=== PATIENT | female | born 1990 | race Caucasian/White ===

== ENCOUNTER 2024-02-26 12:49 | Day surgery (SDC) | payer SELFPAY ==
[2024-02-26] VITALS (20 sets, daily range): BP systolic 121–150; BP diastolic 77–104; PULSE 98–134; BMI 26.0
[2024-02-26] MEDS: PROTONIX IV 80 MG IV (08:48)
[2024-02-26 08:54] LABS: % Basophils 1.2 % (0-2); % Eosinophils 0.3 % (0-6); % Immature Granulocytes 0.3 % (0-0.5); % Lymphocytes 17.8 % (20.5-51.1); % Monocytes 5.8 % (1.7-9.3); % Neutrophils 74.6 % (42.2-75.2); Absolute Basophils 0.1 10^3/uL (0-0.2); Absolute Lymphocytes 1.4 10^3/uL (1.2-3.4); Absolute Monocytes 0.5 10^3/uL (0.1-0.6); Absolute Neutrophils 5.8 10^3/uL (1.4-6.5); Hematocrit 35.5 % (37.0-47.0); Hemoglobin 12.8 g/dL (12.0-16.0); Mean Corp Hgb Conc. 36.1 g/dL (33.0-37.0); Mean Corpuscular Hgb 36.6 pg (27.0-31.0); Mean Corpuscular Volume 101.4 fL (81.0-99.0); Mean Platelet Volume 10.9 fL (7.4-10.4); Nucleated Red Blood Cells % 0 %; Platelet Count 170 10^3/uL (130-400); Red Cell Dist. Width 14.3 % (11.5-14.5); White Blood Cell Count 7.8 10^3/uL (4.8-10.8)
[2024-02-26 09:02] LABS: HCG, Serum Qualitative Screen Negative
[2024-02-26 09:04] LABS: ALT (SGPT) 49 U/L (0-35); AST (SGOT) 102 U/L (14-36); Albumin 4.5 g/dl (3.5-5.0); Alkaline Phosphatase 85 U/L (38-126); Blood Urea Nitrogen 23 mg/dl (7-17); Calcium 10.3 mg/dl (8.4-10.2); Carbon Dioxide 23 mmol/L (22-30); Chloride 102 mmol/L (98-107); Glucose 139 mg/dl (70-99); Potassium 3.5 mmol/L (3.5-5.1); Sodium 137 mmol/L (135-145); Total Bilirubin 1.9 mg/dl (0.2-1.3); Total Protein 7.6 g/dl (6.3-8.2); eGFR > 60.00
[2024-02-26 09:09] LABS: PT 13.2 Sec (11.4-14.6)
--- NOTE | 2024-02-26 10:32 | ED.GENMED ---
History of Present Illness
General
Chief Complaint: Rectal Bleeding
Source: patient and family
Time Seen by Provider: 02/26/24 08:30
History of Present Illness
History of Present Illness:
33-year-old female who presents after she vomited blood at home. The patient also states she had black stool. Patient does admit that she had a vomiting illness on Saturday thought was a GI bug but does admit that she was drinking alcohol on Saturday.
She states she does drink alcohol about 3 times a week. She drinks about 3 glasses of wine 3 times a week. Patient also does use ibuprofen once or twice daily. This is for headaches. The patient denies anticoagulant use. No abdominal pain. No
fevers. No shortness of breath. No chest pain.
Past History
Past History
ED Past Medical History: None
ED Past Surgical History: None
PSI?: No
Social History
Tobacco: Smoker (Social)
Alcohol: Occasional
Living: with family
Phy Exam
Physical Exam
Physical Exam:
CONSTITUTIONAL Patient alert and oriented to person, place and time. Well-appearing. Vital signs reviewed.
HEAD atraumatic, normocephalic.
EYES eyelids normal to inspection, Pupils equally round and reactive to light, Extraocular muscles intact, Conjunctiva normal, Sclera normal.
NECK normal range of motion, Trachea midline, no jugular venous distention.
RESPIRATORY CHEST No respiratory distress noted, Chest expansion equal, Bilateral breath sounds clear.
CARDIOVASCULAR regular and tachycardic
ABDOMEN abdomen nontender, Bowel sounds normal. No distention. Rectal exam strongly heme positive but minimal stool in the vault
BACK normal inspection, no obvious deformities
UPPER EXTREMITY range of motion normal, Motor strength normal, no cyanosis, no edema.
LOWER EXTREMITY range of motion normal, Motor strength normal, no cyanosis, no edema.
NEURO Speech normal, No focal motor deficits, Sorin coma scale 15, Memory normal, Cranial Nerves intact to screening exam.
SKIN skin warm, dry, and normal in color.
PSYCHIATRIC patient oriented to person place and time, Normal affect.
Course
Orders/Labs/Results
Orders:
Orders
02/26/24 08:30
IV Insert/Care/Rem.- Treatment PRN
02/26/24 08:37
Complete Blood Count/With Diff Urgent
Comprehensive Metabolic Panel Urgent
HCG, Serum Qualitative Screen Urgent
Prothrombin Time Urgent
02/26/24 08:43
Pantoprazole [Protonix IV] 80 mg IV NOW STA
Test Result ONCE
02/26/24 10:59
Lorazepam [Ativan] 0.5 mg IV NOW STA
Abnormal Lab Results
02/26/24
08:37
RBC 3.50 L 10^6/uL
(4.20-5.40)
Hct 35.5 L %
(37.0-47.0)
MCV 101.4 H fL
(81.0-99.0)
MCH 36.6 H pg
(27.0-31.0)
MPV 10.9 H fL
(7.4-10.4)
Lymphocytes % 17.8 L %
(20.5-51.1)
BUN 23 H mg/dl
(7-17)
Glucose 139 H mg/dl
(70-99)
Calcium 10.3 H mg/dl
(8.4-10.2)
Total Bilirubin 1.9 H mg/dl
(0.2-1.3)
AST 102 H U/L
(14-36)
ALT 49 H U/L
(0-35)
02/26/24 08:37
02/26/24 08:37
Vital Signs
Initial and Last Documented VS:
Initial Vital Signs
Temp Pulse Resp BP Pulse Ox
98.4 F 130 18 140/103 99
02/26/24 08:24 08/14/24 08:24 02/26/24 08:24 02/26/24 08:24 02/26/24 08:24
Last Documented Vital Signs
Temp Pulse Resp BP Pulse Ox
98.4 F 92 17 129/93 99
02/26/24 08:24 02/26/24 12:15 02/26/24 12:15 02/26/24 12:00 02/26/24 08:24
MDM/Problems Addressed
MDM/Problems Addressed:
Upper GI bleeding. NSAID use, alcohol use
*Pulse Oximetry
Patient hypoxic: no
*Development Consultant Interpretation
Rate: tachycardiac
Interpretation: abnormal
Rhythm: sinus
*Critical Care Note
Total Time (30-74mins, 75-104mins- exclusive of procedures): 30 minutes
Data Reviewed
Source: patient and family
Prescriptions/Medications Considered But Not Given:
Consider Protonix drip. Discussed with GI who will take to endoscopy
Patient Management
Discussion with other providers: Lining Machine Tender (Gastroenterology)
Escalation/DeEscalation of care consider admission/obs:
Case discussed with GI. For now they will consider endoscopy to see if patient needs admission versus ability to discharge home. Concern for peptic ulcer disease in light of NSAID use and alcohol use. Also did recently have vomiting illness and
could consider just an erosion or gastritis. GI to evaluate
ED Attending Note
-
Portions of this chart may have been created with voice recognition software.� Occasional wrong word or��sound alike� substitutions may have occurred due to the inherent limitations of voice recognition software.
Discharge Plan
Departure
Patient Disposition: Admit
Date of Disposition: 02/26/24
Time of Disposition: 10:44
Admit to: GI lab
Presentation/result/management discussed w/ accepting MD/DO: Gastroenterology
Discharge Problem:
Acute upper gastrointestinal bleeding
Interventions
Interventions:
*Risk Screen - Suicide Last Done: 02/26/24 08:25
*General Assessment Last Done: 02/26/24 08:25
*Neglect/Abuse Screening Last Done: 02/26/24 08:25
ED- Fall Risk Assessment Last Done: 02/26/24 08:54
*ED COVID-19 Vaccine History Last Done: 02/26/24 08:25
*Nursing Disposition Last Done: 02/26/24 12:39
TT-Oxbimb-Fiaybpzsjy Assessment Last Done: 02/26/24 08:54
ED- Cardiac Assessment Last Done: 02/26/24 08:54
ED- Pulmonary Assessment Last Done: 02/26/24 08:54
Discharge Date and Time
Discharge Date/Time: 02/26/24 12:41
[2024-02-26] MEDS: ATIVAN 0.5 MG IV (11:09)
--- NOTE | 2024-02-26 11:19 | CON.GI ---
Addendum entered and electronically signed by Juanis Rascon MD 02/26/24 14:35:
I saw and examined the patient.
The WRITING CENTER DIRECTOR's note was reviewed and I agree with the note.
Comment: This is a 33-year-old female who has past medical history of alcohol abuse, daily NSAID use, anxiety, depression, migraines, prior history of peptic ulcer disease with ulceration noted in the gastric antrum on CT in 2020 with possible
perforation she then had an upper GI which showed no perforation she was told to follow-up with GI for endoscopy but unfortunately had not followed up presents now with symptoms of hematemesis with melena and dizziness today morning. She was
tachycardic in the ER hemoglobin of 12.8 she also was noted to have elevated MCV with AST greater than ALT. She did receive IV hydration blood pressure stable she states that she is also been having a cough and was sick with gastroenteritis a few
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
Assessment and plan upper GI bleed most likely secondary to NSAIDs and possible peptic ulcer disease related to that will also need to rule out alcohol gastritis and possible Danielle-Tyler tear given recent history of gastroenteritis with n/v. She
has received a bolus of Protonix and IVF in the ER will schedule her for an endoscopy today. Will need to avoid NSAIDs and also told her to cut back on alcohol use, she did have mildly elevated LFTs most likely secondary to alcohol hepatitis will
continue to trend INR and platelets are normal.
Original Note:
Consultation
-
Date/Time Consultation Requested: 02/26/24 1045
Date/Time Consultation Performed: 02/26/24 1115
Requesting Provider: Wilson Sahu DO
Performing Provider: JAHAIRA Partida, Juanis Rascon MD
Reason for Consultation: hematemesis, black stools
Medical History
Chief Complaint / HPI
Chief Complaint: vomiting blood, black stools
History of Present Illness:
Pt is a 33yo with hx migraines with daily NSAID use(ibuprofen 600mg daily), anxiety, depression, social ETOH with 2-3 glasses of wine 3-4 times per week, occasional tobacco use and marijuana use with onset of vomiting blood this am. Pt states recent
GI illness with vomiting earlier in week then noted vomiting larger amount of red blood with clots with dizziness and black stools this am prompting ER evaluation. In ER noted with hbg 12.8, MCV 101, BUN 23, bili 1.9, AST 102, ALT 49 alk phos
85. She is also noted with some tachycardia with stable BP on admission. No hx GI bleed and denies hx prior EGD or colonoscopy in past. In review of chart from 2020 noted with concern for free air, ? ulceration gastric antrum, umbilical hernia,
UGI f/u no ulceration and duodenitis noted. She was recommended follow up but did not proceed.
Pt admits to vomiting, black stools and dizziness as above but denies dysphagia, GERD, abdominal pain, diarrhea, constipation or red blood in stools.
Past Medical History
Past Medical History: Psychiatric (anxiety/depression) and Other (migraines with NSAID use, ETOH use, tobacco use, marijuana use, 2020 - CT with suggestion of free air , ? ulceration gastric antrum, umbilical hernia, UGI f/u no ulceration and
duodenitis noted )
Past Surgical History: Gynecological (D+C)
Social History
Tobacco: Smoker (occasional )
Alcohol: Occasional (2-3 drinks 3-4 times per week)
Drug: Marijuana
Living: With Family
Employment: Employed
Family History
Family History: Other (sister with hx ETOH pancreatitis )
Allergies / Home Medications
Allergy/AdvReac Type Severity Reaction Status Date / Time
No Known Allergies Allergy Verified 02/26/24 08:24
�Medication �Instructions �Recorded
ibuprofen 200 mg tablet (Advil) 200 mg PO Q6HPRN PRN mild pain 02/26/24
Review of Systems
-
History Source: Patient
Constitutional: Reports No Symptoms
EENT: Reports No Symptoms
Respiratory: Reports No Symptoms
Cardiac: Reports Palpitations (tachicardia in ER)
Abdomen/GI: Reports Nausea, Vomiting, Black Stools and Other (hematemesis )
: Reports No Symptoms
Musculoskeletal: Reports No Symptoms
Neurological: Reports Dizzy, Headache and Weakness
Endocrine: Reports No Symptoms
Hematologic/Lymphatic: Reports Bleeding
Vital Signs
Temp Pulse Resp BP Pulse Ox
98.4 F 120 26 148/104 99
02/26/24 08:24 02/26/24 10:38 02/26/24 10:38 02/26/24 10:38 02/26/24 08:24
Physical Exam
Exam
General: Well Developed and Well Nourished
HEENT: Other (minimal jaundice )
Respiratory: Clear
Cardiac: Other (tachy)
GI: Soft, Non Tender and Non Distended
Rectal: Hem Positive (in ER)
Musculoskeletal: No Clubbing and No Cyanosis
Skin: Warm and Dry
Neuro: Awake, Alert and AO x 3
Psych: Calm
Results
WBC 7.8 10^3/uL (4.8-10.8) 02/26/24 08:37
Hgb 12.8 g/dL (12.0-16.0) 02/26/24 08:37
Hct 35.5 % (37.0-47.0) L 02/26/24 08:37
MCV 101.4 fL (81.0-99.0) H 02/26/24 08:37
Plt Count 170 10^3/uL (130-400) 02/26/24 08:37
Absolute Neuts (auto) 5.8 10^3/uL (1.4-6.5) 02/26/24 08:37
PT 13.2 Sec (11.4-14.6) 02/26/24 08:37
INR 1.00 02/26/24 08:37
Sodium 137 mmol/L (135-145) 02/26/24 08:37
Potassium 3.5 mmol/L (3.5-5.1) 02/26/24 08:37
Chloride 102 mmol/L (98-107) 02/26/24 08:37
Carbon Dioxide 23 mmol/L (22-30) 02/26/24 08:37
BUN 23 mg/dl (7-17) H 02/26/24 08:37
Creatinine 0.7 mg/dL (0.6-1.0) 02/26/24 08:37
Calcium 10.3 mg/dl (8.4-10.2) H 02/26/24 08:37
Total Bilirubin 1.9 mg/dl (0.2-1.3) H 02/26/24 08:37
AST 102 U/L (14-36) H 02/26/24 08:37
ALT 49 U/L (0-35) H 02/26/24 08:37
Alkaline Phosphatase 85 U/L (38-126) 02/26/24 08:37
Diagnostic Image Results:
2020 US abdomen
1. No evidence of cholelithiasis, acute cholecystitis, or biliary ductal dilation.
2. Dirty shadowing anterior to the liver, consistent with free intraperitoneal air, also seen on yesterday's CT.
3. Positive sonographic Bower's sign, more likely related to upper GI process than acute cholecystitis.
2020 CT A/p with IV contrast
1). There is free intraperitoneal air suggesting the presence of perforated abdominal viscus.
2). Imaging suggests ulceration at the anterior superior aspect of the gastric antrum.
3). There is a small amount of ascites in the pelvis.
4). There is 2 cm umbilical hernia which contains a knuckle of small bowel without associated obstruction or strangulation
2020 UGI
No ulceration or perforation is demonstrated.
There is thickening of the folds in the second and third portions of the duodenum suggesting duodenitis.
Prior GI Procedures:
EGD: none
Colonoscopy: none
Assessment / Plan
-
Pt is a 33yo with hx migraines with daily NSAID use(ibuprofen 600mg daily), anxiety, depression, social ETOH with 2-3 glasses of wine 3-4 times per week, occasional tobacco use and marijuana use with onset of vomiting blood this am. Pt states recent
GI illness with vomiting earlier in week then noted vomiting larger amount of red blood with clots with dizziness and black stools this am prompting ER evaluation. In ER noted with hbg 12.8, MCV 101, BUN 23, bili 1.9, AST 102, ALT 49 alk phos
85. She is also noted with some tachycardia with stable BP on admission. No hx GI bleed and denies hx prior EGD or colonoscopy in past. In review of chart from 2020 noted with concern for free air, ? ulceration gastric antrum, umbilical hernia,
UGI f/u no ulceration and duodenitis noted. She was recommended follow up but did not proceed.
-hematemesis
-melena
-tachycardia
-ETOH use
-macrocytosis
-increased LFT's- possible ETOH related vs other
-hx ? perforated ulcer 2020 without follow up
-migraines with daily NSAID use
other med problems:
-anxiety/depression
-tobacco use
-marijuana use
PLAN:
etiology of hematemesis/melena related to PUD with hx NSAID use, gastritis/esophagitis, portal gastopathy with ETOH use, MW tear with recent GI illness vs other
plan for EGD today- pt agreeable to proceed
hbg stable 12.8 on admission
pending results will determine need for admission
discussed ETOH abstinence
NSAID avoidance-- review with PCP for alternative for headaches
NPO
PPI given in ER
monitor for ETOH withdrawal
INR, platelets and albumin normal with possible underlying liver disease with LFT elevation
updated hospitalist on possible need for admission pending EGD results
-
-
-
Thank you for consultation and allowing me to participate in the patient's care. Please call the regional education coordinator GI physician during the after hours with any questions or concerns.
--- NOTE | 2024-02-26 14:17 | HPS.HSE ---
Family Physician
-
Family Physician: * NONE
Chief Complaint
-
Nausea and vomiting with blood
History of Present Illness
Patient is a 33-year-old female who presents to [facility] after multiple episodes of vomiting with bright red blood. Patient states she has never had blood in her vomit before and thought this was a GI illness. She states she drinks at
least 5 days of the week and has at least 4-5 drinks. She smokes marijuana a couple times a week as well and states she smoked before onset of symptoms. Patient also takes 1-2 ibuprofen for pain daily. After presenting to the ED, she was taken
for an EGD with GI. She states she has no headaches, ongoing nausea or vomiting, diarrhea, constipation, abdominal pain, chest pain, shortness of breath.
Medical History
Past Medical History
Past Medical History: Reports None
Past Surgical History: Reports None
Social History
Tobacco: Other (Social cigarette smoker)
Alcohol: Daily (5 days a week, 4-5 drinks a day)
Drug: Marijuana (2 times a week)
Living: With Family
Family History
Family History: Not pertinent
Allergies / Home Medications
Allergies reflects when Allergies were last updated in [employer].
Home Medications with original date entered in [employer]
Allergy/Medication List:
no known allergies
Review of Systems
-
History Source: Patient
Constitutional: Reports No Symptoms
EENT: Reports No Symptoms
Respiratory: Reports Cough (Since Saturday)
Cardiac: Reports No Symptoms
Abdomen/GI: Reports No Symptoms
Neurological: Reports No Symptoms
Psych: Reports No Symptoms
Physical Exam
Vital Signs
Vital Signs
Temp Pulse Resp BP Pulse Ox
97.8 F 99 15 123/79 98
02/26/24 13:50 02/26/24 14:00 02/26/24 14:00 02/26/24 14:00 02/26/24 14:10
Physical Exam
General: Well Developed, Well Nourished, No Apparent Distress, Comfortable and Conversant
HEENT: NormoCephalic and Anicteric
Respiratory: Clear
Cardiac: S1/S2 and Regular Rhythm
GI: Soft, Non Tender, Non Distended and Normal Bowel Sounds
Musculoskeletal: No Clubbing, No Cyanosis and No Edema
Skin: Warm and Dry
Neuro: AO x 3 and No Motor Deficits
Psych: Calm
Laboratory Results
-
02/26/24 08:37
02/26/24 08:37
Laboratory Results
PT 13.2 Sec (11.4-14.6) 02/26/24 08:37
INR 1.00 02/26/24 08:37
Total Bilirubin 1.9 mg/dl (0.2-1.3) H 02/26/24 08:37
AST 102 U/L (14-36) H 02/26/24 08:37
ALT 49 U/L (0-35) H 02/26/24 08:37
Alkaline Phosphatase 85 U/L (38-126) 02/26/24 08:37
Data Reviewed
-
Medical Tests (Nuc Med, Echo, EKG etc): Report Reviewed by me
Lab Data: Labs Reviewed by me and Discussed with Physician
Old Records: Reviewed
Impression/Plan
-
IMPRESSION: Patient is a 33-year-old female with no significant past medical history presenting to [facility] after multiple episodes of hematemesis.
PLAN:
Hematemesis
-Peptic ulcer secondary to alcohol use versus NSAID use versus marijuana hyperemesis syndrome
�Monitor overnight for repeat episodes
� GI on board. Input appreciated
Alcohol use
� Start patient on thiamine and folate
� MSAS protocol
�Monitor patient for any withdrawal symptoms
DVT prophylaxis�sequential compression devices
Full code
[2024-02-26] MEDS: THIAMINE INJECTION 200 MG IV (17:00)
[2024-02-26] MEDS: FOLVITE 50.2 MG IV (17:01)
[2024-02-26] MEDS: ATIVAN 0.5 MG PO (17:40)
[2024-02-26] MEDS: NSS (PRESERVATIVE FREE) 10 ML IV (21:18)
[2024-02-26] MEDS: PROTONIX IV 40 MG IV (21:20)
[2024-02-27 03:19] VITALS: BP 137/95
--- NOTE | 2024-02-27 07:27 | W.PN.HOSP.TC ---
Today's Communication/Plan
-
.
Assessment / Plan
Assessment / Plan
IMPRESSION: Patient is a 33-year-old female with no significant past medical history presenting to [facility] after multiple episodes of hematemesis.
PLAN:
Hematemesis
-Peptic ulcer secondary to alcohol use versus NSAID use versus marijuana hyperemesis syndrome
�Monitor overnight for repeat episodes
� GI on board. Input appreciated
Alcohol use
� Start patient on thiamine and folate
� MSAS protocol
�Monitor patient for any withdrawal symptoms
Axiety
- pt given a single dose of ativan on 02/25
- warm hand off offered, patient refused.
� Patient to be discharged on paroxetine
- monitor and treat for any further sx
DVT prophylaxis�sequential compression devices
Full code
Anticipated Discharge: Today
Subjective/Interval History
-
Date of Service: February 27, 2024
Patient reports feeling well today. She states she had some anxiety overnight. She is looking forward to going home. No new symptoms or repeat episodes of hematemesis
Objective Data
-
Labs:
Laboratory Results
02/27/24
06:00
WBC Pending
Hgb Pending
Hct Pending
Plt Count Pending
Vital Signs:
Vital Signs
Temp Pulse Resp BP Pulse Ox
99.8 F 86 18 137/95 95
02/27/24 03:19 02/27/24 03:19 02/27/24 03:19 02/27/24 03:19 02/27/24 03:19
I&O
02/26/24 02/27/24 02/28/24
06:59 06:59 06:59
Intake Total 100 / 100
Balance 100 / 100
Review of Systems
-
History Source: Patient
All other systems: Reviewed and negative
Physical Exam
-
General: Well Developed, Well Nourished, No Apparent Distress, Comfortable and Conversant
HEENT: Normocephalic and Atraumatic
GI: Soft, Nontender and Nondistended
Musculoskeletal: No Clubbing, No Cyanosis and No Edema
Skin: Warm and Dry
Neuro: AO x 3
Psych: Calm
Data Reviewed
-
Labs: Labs Reviewed by me and Discussed with Physician
Old Records: Reviewed
[2024-02-27 07:45] VITALS: BP 137/88
[2024-02-27] MEDS: PROTONIX IV 40 MG IV (07:58)
[2024-02-27] MEDS: ATARAX 25 MG PO (07:58)
[2024-02-27] MEDS: THIAMINE INJECTION 200 MG IV (07:59)
[2024-02-27] MEDS: NSS (PRESERVATIVE FREE) 10 ML IV (07:59)
--- NOTE | 2024-02-27 08:33 | W.PN.GI.CBS2 ---
Today's Communication / Plan
-
advanced diet
DC home if HB stable
Assessment / Plan
-
Pt is a 33yo with hx migraines with daily NSAID use(ibuprofen 600mg daily), anxiety, depression, social ETOH with 2-3 glasses of wine 3-4 times per week, occasional tobacco use and marijuana use with onset of vomiting blood this am. Pt states recent
GI illness with vomiting earlier in week then noted vomiting larger amount of red blood with clots with dizziness and black stools this am prompting ER evaluation. In ER noted with hbg 12.8, MCV 101, BUN 23, bili 1.9, AST 102, ALT 49 alk phos
85. She is also noted with some tachycardia with stable BP on admission. No hx GI bleed and denies hx prior EGD or colonoscopy in past. In review of chart from 2020 noted with concern for free air, ? ulceration gastric antrum, umbilical hernia,
UGI f/u no ulceration and duodenitis noted. She was recommended follow up but did not proceed.
-hematemesis
-melena
-tachycardia
-ETOH use
-macrocytosis
-increased LFT's- possible ETOH related vs other
-hx ? perforated ulcer 2020 without follow up
-migraines with daily NSAID use
other med problems:
-anxiety/depression
-tobacco use
-marijuana use
PLAN:
Upper GI bleed status post EGD which showed gastric antral ulcers and a oozing prepyloric ulcer which showed pigmented spot status post gold probe. Also had duodenal mucosal flattening suggestive of celiac, celiac serologies are pending
No further bleeding, labs pending
If hemoglobin stable okay to DC later today
Advance diet
Repeat upper endoscopy in 8 weeks to check healing.
Will take small bowel biopsies at that time to rule out celiac and also gastric biopsies to rule out H. pylori although ulcers most likely NSAID related
NO NSAIDS
PPI bid
Also has alcohol hepatitis encouraged her to strongly abstain from alcohol and see her PCP to treat her underlying anxiety depression she has been off meds for a long time continue thiamine and folic acid
Encouraged her to also attend AA meetings DF less than 32
-
Subjective
Subjective
Date of Service: February 27, 2024
No further nausea vomiting or hematemesis. No melena. She denies any abdominal pain. She says she does have baseline anxiety depression and just feels anxious but denies withdrawal. Blood pressure stable and heart rate is also stable now not
tachycardic anymore
Objective
Data Reviewed
Laboratory Data:
Laboratory Results
02/26/24 08:37
Laboratory Results
PT 13.2 Sec (11.4-14.6) 02/26/24 08:37
INR 1.00 02/26/24 08:37
Total Bilirubin 1.9 mg/dl (0.2-1.3) H 02/26/24 08:37
AST 102 U/L (14-36) H 02/26/24 08:37
ALT 49 U/L (0-35) H 02/26/24 08:37
Alkaline Phosphatase 85 U/L (38-126) 02/26/24 08:37
Vital Signs and I&O:
Vital Signs
Temp Pulse Resp BP Pulse Ox
97.7 F 88 21 137/88 98
02/27/24 07:45 02/27/24 07:45 02/27/24 07:45 02/27/24 07:45 02/27/24 07:45
I&O
02/26/24 02/27/24 02/28/24
06:59 06:59 06:59
Intake Total 100 / 100
Balance 100 / 100
Impression: - Normal esophagus.
- Non-bleeding gastric ulcers with no stigmata of
bleeding.
- Oozing gastric ulcer with a flat pigmented spot
(Hector Class IIc). Treated with bipolar cautery.
- Flattened mucosa was found in the duodenum,
suspicious for celiac disease.
- No specimens collected.
Physical Exam
Physical Exam
Cardiology: Normal Sinus Rhythm
Pulmonary: Clear
GI: Soft, Non Distended, Non Tender and Normal Bowel Sounds
--- NOTE | 2024-02-27 08:37 | W.PN.GI.CBS2 ---
Today's Communication / Plan
-
s/p EGD with PUD
repeat hbg pending this am, pt reports brown stools no abdominal pain
pt feeling improved
increased to low residue diet
message sent to office to arrange GI follow up and will need EGD in 8 week
cont PPI BID
counseled on NSAID and ETOH abstinence
monitor for ETOH withdrawal
if hbg stable and tolerating advanced diet consider discharge today
Assessment / Plan
-
Pt is a 33yo with hx migraines with daily NSAID use(ibuprofen 600mg daily), anxiety, depression, social ETOH with 2-3 glasses of wine 3-4 times per week, occasional tobacco use and marijuana use with onset of vomiting blood this am. Pt states recent
GI illness with vomiting earlier in week then noted vomiting larger amount of red blood with clots with dizziness and black stools this am prompting ER evaluation. In ER noted with hbg 12.8, MCV 101, BUN 23, bili 1.9, AST 102, ALT 49 alk phos
85. She is also noted with some tachycardia with stable BP on admission. No hx GI bleed and denies hx prior EGD or colonoscopy in past. In review of chart from 2020 noted with concern for free air, ? ulceration gastric antrum, umbilical hernia,
UGI f/u no ulceration and duodenitis noted. She was recommended follow up but did not proceed.
02/25 - Normal esophagus.
- Non-bleeding gastric ulcers with no stigmata of
bleeding.
- Oozing gastric ulcer with a flat pigmented spot
(Hector Class IIc). Treated with bipolar cautery.
- Flattened mucosa was found in the duodenum,
suspicious for celiac disease.
- No specimens collected.
-hematemesis/ melena EGD c/w PUD
-tachycardia- improved
-ETOH use
-macrocytosis
-increased LFT's- possible ETOH related vs other
-hx ? perforated ulcer 2020 without follow up
-migraines with daily NSAID use
other med problems:
-anxiety/depression
-tobacco use
-marijuana use
PLAN:
s/p EGD with PUD
repeat hbg pending this am, pt reports brown stools no abdominal pain
pt feeling improved
increased to low residue diet
message sent to office to arrange GI follow up and will need EGD in 8 week
cont PPI BID
counseled on NSAID and ETOH abstinence
monitor for ETOH withdrawal
if hbg stable and tolerating advanced diet consider discharge today
-
Subjective
Subjective
Date of Service: February 27, 2024
tolerating clear diet, pt report now brown stool feeling better
Objective
Data Reviewed
Laboratory Data:
Laboratory Results
02/26/24 08:37
Laboratory Results
PT 13.2 Sec (11.4-14.6) 02/26/24 08:37
INR 1.00 02/26/24 08:37
Total Bilirubin 1.9 mg/dl (0.2-1.3) H 02/26/24 08:37
AST 102 U/L (14-36) H 02/26/24 08:37
ALT 49 U/L (0-35) H 02/26/24 08:37
Alkaline Phosphatase 85 U/L (38-126) 02/26/24 08:37
Vital Signs and I&O:
Vital Signs
Temp Pulse Resp BP Pulse Ox
97.7 F 88 21 137/88 98
02/27/24 07:45 02/27/24 07:45 02/27/24 07:45 02/27/24 07:45 02/27/24 07:45
I&O
02/26/24 02/27/24 02/28/24
06:59 06:59 06:59
Intake Total 100 / 100
Balance 100 / 100
Physical Exam
Physical Exam
HEENT: Anicteric and Moist mucous membranes
Cardiology: Normal Sinus Rhythm
Pulmonary: Clear
GI: Soft, Non Distended and Non Tender
Extremities: No Edema
Neuro: Non Focal
--- NOTE | 2024-02-27 08:52 | W.DCSUMMARY ---
Documented by User: Mona Kate DO, Resident 02/27/24 08:53
Discharge Summary
Discharge Data
Date of Admission: 02/26/24
Date of Discharge: 02/27/24
Total time spent discharging patient (in min): 20
-
Pending Results: Yes
Additional Pending Results:
H pylori, TTIgG, TTIgA, Endomysial IgA
Hospital Course
Hospital diagnosis�hematemesis
Diagnosis [employer]-anxiety
Hospital course�Patient is a 33-year-old female who presents to [facility] after multiple episodes of vomiting with bright red blood. In the ED GI was consulted and patient was taken for endoscopy. Endoscopy showed esophagus was normal, 3
nonbleeding superficial gastric ulcers with no stigmata of bleeding in the gastric antrum, largest lesion 8 mm. One oozing cratered gastric ulcer with a flat pigmented spot�Hector class IIc in prepyloric region of stomach and was 10 mm in largest
dimension. Coagulation were hemostasis was successful. Patient was kept for observation overnight to monitor for repeat episodes of hematemesis or withdrawal symptoms from alcohol. Patient was started on IV PPI, thiamine and folate.
Recommendations made to stop NSAID use and repeat endoscopy in 8 weeks to check for healing. Recommendations also made to stop EtOH use and continue PPIs twice a day. For anxiety, patient was discharged with paroxetine taper. She was instructed
to take 20 mg for 7 days followed by 30 mg for 21 days and then to follow-up with primary care physician.
Data reviewed�
02/25�endoscopy:
Impression: - Normal esophagus.
- Non-bleeding gastric ulcers with no stigmata of
bleeding.
- Oozing gastric ulcer with a flat pigmented spot
(Hector Class IIc). Treated with bipolar cautery.
- Flattened mucosa was found in the duodenum,
suspicious for celiac disease.
- No specimens collected.
Discharge Plan
-
Patient Disposition: Home (Routine Discharge)
Discharge Diagnosis/Procedures: Hematemesis
Condition: Good
Diet: As tolerated and Regular
Activity: No restrictions
Driving Restrictions: As prior to admission
Bathing Restrictions: None
Referrals:
Juanis Rascon MD [Active] - in one to two months (call to arrange GI follow up -- will need repeat EGD in 8 weeks to assess for healing )
NONE,* [Family Provider] -
Additional Discharge Medication Instructions: avoid NSAID(ibuprofen, motrin, aleve, etc) review with PCP for headache management, avoid alcohol. Please call Family Medicine office for follow up in 2-3 weeks
Prescriptions:
New
paroxetine HCl 10 mg tablet
10 mg PO DAILY Qty: 77 0RF
Rx Instructions:
Take 2 pills daily for 7 days.
Followed by 3 pills daily for 21 days.
folic acid 1 mg tablet
1 mg PO DAILY Qty: 30 2RF
thiamine HCl (vitamin B1) 100 mg tablet
100 mg PO DAILY Qty: 30 2RF
pantoprazole 40 mg tablet,delayed release (DR/EC)
40 mg PO BID 30 Days Qty: 60 2RF
Discontinued
ibuprofen [Advil] 200 mg Tablet
200 mg PO Q6HPRN PRN (Reason: mild pain)
Discharge Orders:
Discharge Patient (As Directed); Ordered 02/27/24
Ordered By: Mona Kate
Discharge Date and Time
Discharge Date/Time: 02/27/24 11:11
Print Language: [place]AP[place]

Documented by User: Tnai Gregory MD 02/28/24 16:38
Discharge Summary
Discharge Data
Date of Admission: 02/26/24
Date of Discharge: 02/28/24
Discharge Plan
-
Patient Disposition: Home (Routine Discharge)
Discharge Diagnosis/Procedures: Hematemesis
Condition: Good
Diet: As tolerated and Regular
Activity: No restrictions
Driving Restrictions: As prior to admission
Bathing Restrictions: None
Referrals:
Juanis Rascon MD [Active] - in one to two months (call to arrange GI follow up -- will need repeat EGD in 8 weeks to assess for healing )
NONE,* [Family Provider] -
Additional Discharge Medication Instructions: avoid NSAID(ibuprofen, motrin, aleve, etc) review with PCP for headache management, avoid alcohol. Please call Family Medicine office for follow up in 2-3 weeks
Prescriptions:
New
paroxetine HCl 10 mg tablet
10 mg PO DAILY Qty: 77 0RF
Rx Instructions:
Take 2 pills daily for 7 days.
Followed by 3 pills daily for 21 days.
folic acid 1 mg tablet
1 mg PO DAILY Qty: 30 2RF
thiamine HCl (vitamin B1) 100 mg tablet
100 mg PO DAILY Qty: 30 2RF
pantoprazole 40 mg tablet,delayed release (DR/EC)
40 mg PO BID 30 Days Qty: 60 2RF
Discontinued
ibuprofen [Advil] 200 mg Tablet
200 mg PO Q6HPRN PRN (Reason: mild pain)
Discharge Orders:
Discharge Patient (As Directed); Ordered 02/27/24
Ordered By: Mona Kate
Discharge Date and Time
Discharge Date/Time: 02/27/24 11:11
Print Language: [place]
--- NOTE | 2024-02-27 09:34 | CM ---
Patient seen at bedside.
Discharge today
case management consult complete.
Patient declined resources [facility].
Patient without PCP-Information & phone number given for [facility] Residency program.
PLAN: Discharge to home. No needs.
Mom to transport.
[2024-02-27 09:42] LABS: Hematocrit 30.2 % (37.0-47.0); Hemoglobin 10.6 g/dL (12.0-16.0); Mean Corp Hgb Conc. 35.1 g/dL (33.0-37.0); Mean Corpuscular Hgb 36.1 pg (27.0-31.0); Mean Corpuscular Volume 102.7 fL (81.0-99.0); Mean Platelet Volume 11.2 fL (7.4-10.4); Platelet Count 137 10^3/uL (130-400); Red Blood Cell Count 2.94 10^6/uL (4.20-5.40); White Blood Cell Count 5.2 10^3/uL (4.8-10.8)
[2024-02-27 10:41] LABS: IgA 330 mg/dl (70-400)
[2024-02-27 11:01] VITALS: BP 141/90
[2024-02-29 01:07] LABS: H. pylori Antigen, Fecal Negative (Negative)
[2024-03-04 14:35] LABS: tTG IgA Antibody 99.7 EU/ml (0-19); tTG IgG Antibody 12.7 EU/ml (0-19)
== END 2024-02-27 11:11 | disposition home or self-care (01) ==
LOC: GI 12:49
PROVIDERS: Student in an Organized Health Care Education/Training Program; ATTENDING PHYSICIAN Internal Medicine Gastroenterology; EMERGENCY PHYSICIAN Emergency Medicine
DX: K92.0 Hematemesis (principal); K92.1 Melena; K25.9 Gastric ulcer, unspecified as acute or chronic, without hemorrhage or perforation; K25.4 Chronic or unspecified gastric ulcer with hemorrhage; K31.89 Other diseases of stomach and duodenum
CPT/HCPCS: 43255; 80053; 82784; 83516; 84703; 85025; 85027; 85610; 86231; 87338; 96374; 96375; 99291; 99406